=== PATIENT | female | born 1950 | race Caucasian/White ===

== ENCOUNTER → 2024-04-19 13:12 | Outpatient (REF) | payer MEDICARE, SELFPAY | LOC: RAD 13:12 | PROVIDERS: ATTENDING PHYSICIAN Internal Medicine Geriatric Medicine | DX: I10 Essential (primary) hypertension (principal); E78.5 Hyperlipidemia, unspecified | CPT/HCPCS: 93971 ==

== ENCOUNTER → 2024-05-05 11:40 | Outpatient (REF) | payer MEDICARE, SELFPAY | LOC: PAVMRI 11:40 | PROVIDERS: ATTENDING PHYSICIAN Internal Medicine Geriatric Medicine | DX: R22.42 Localized swelling, mass and lump, left lower limb (principal) | CPT/HCPCS: 73718 ==

== ENCOUNTER → 2024-06-28 15:36 | Outpatient (REF) | payer MEDICARE, SELFPAY | LOC: RAD 15:36 | PROVIDERS: ATTENDING PHYSICIAN Internal Medicine Geriatric Medicine | DX: E78.5 Hyperlipidemia, unspecified (principal); I10 Essential (primary) hypertension; M35.01 Sjogren syndrome with keratoconjunctivitis; E66.01 Morbid (severe) obesity due to excess calories; M76.32 Iliotibial band syndrome, left leg; M70.62 Trochanteric bursitis, left hip; M75.41 Impingement syndrome of right shoulder; M81.0 Age-related osteoporosis without current pathological fracture; H81.10 Benign paroxysmal vertigo, unspecified ear; E55.9 Vitamin D deficiency, unspecified; Z13.31 Encounter for screening for depression; R07.9 Chest pain, unspecified; R68.89 Other general symptoms and signs | CPT/HCPCS: 71046 ==

== ENCOUNTER → 2024-07-05 14:20 | Outpatient (REF) | payer MEDICARE, SELFPAY | LOC: HWRAD 14:20 | PROVIDERS: ATTENDING PHYSICIAN Internal Medicine Geriatric Medicine | DX: R91.1 Solitary pulmonary nodule (principal) | CPT/HCPCS: 71250 ==

== ENCOUNTER → 2024-07-07 12:48 | Outpatient (REF) | payer MEDICARE, OTHER, SELFPAY | LOC: RCS 12:48 | PROVIDERS: ATTENDING PHYSICIAN Internal Medicine Geriatric Medicine | DX: E78.5 Hyperlipidemia, unspecified (principal); I10 Essential (primary) hypertension; M35.01 Sjogren syndrome with keratoconjunctivitis; E66.01 Morbid (severe) obesity due to excess calories; M76.32 Iliotibial band syndrome, left leg; M70.62 Trochanteric bursitis, left hip; M75.41 Impingement syndrome of right shoulder; M81.0 Age-related osteoporosis without current pathological fracture; H81.10 Benign paroxysmal vertigo, unspecified ear; E55.9 Vitamin D deficiency, unspecified; Z13.31 Encounter for screening for depression; R07.9 Chest pain, unspecified; R68.89 Other general symptoms and signs | CPT/HCPCS: 93017; 93350 ==